=== PATIENT | male | born 1945 | race Caucasian/White ===

== ENCOUNTER 2018-02-03 01:48 | Emergency (ER) | payer OTHER ==
[2018-02-03] MEDS ORDERED: Aspirin 81 MG Tab.Chew PO ONE (01:55)
[2018-02-03] MEDS ORDERED: Sodium Chloride 0.9% 10 ML Syringe FLUSH PRN (01:55)
[2018-02-03] MEDS ORDERED: Sodium Chloride 0.9% 1,000 ML IV ONE (01:55)
[2018-02-03] MEDS ORDERED: Sodium Chloride 0.9% 2.5 ML Syringe FLUSH PRN ×2 (01:55)
--- NOTE | 2018-02-03 02:03 | EDM.PDOC ---
ED HPI GENERAL MEDICAL PROBLEM - General Chief Complaint: Cardiovascular Problem Stated Complaint: HEART SKIPS Time Seen by Provider: 02/03/18 02:02 Source of Information: Reports: Patient History Limitations: Reports: No Limitations - History of Present Illness INITIAL COMMENTS - FREE TEXT/NARRATIVE: HISTORY AND PHYSICAL: History of present illness: 72-year-old male presenting to emergency department with chief complaint of palpitations. Patient states that around midnight tonight he began to have some mild palpitations. He also states that he felt like he needed to breathe a little bit faster and had some associated nausea but no diaphoresis. In general he just felt somewhat weird. Secondary to above can emergency department for further evaluation. He states that these palpitations lasted for approximately an hour and a half but went away on their own. States that he has had A. fib before but had an ablation 1-2 years ago and said no further episodes. 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 Patient states that he did not have any chest pain with these events and the primary reason for coming was because of the palpitations. He does admit to having this happen for but this lasted a little bit longer. -Patient does note that he would like to at all possible follow-up at his home in [place] as he has only been oozing here for 4 days. He is planning on flying back today at 0800. -CBC, CMP, chest x-ray, troponin were all unremarkable and patient continues to have no symptoms. D-dimer was mildly elevated but patient denies any recent sitting, shortness of breath, leg swelling, leg pain. Well's criteria low probability for DVT/PE. -After results were given to the patient he asked to be discharged and stated that he would rather follow-up with his primary care physician in [place]. He did guarantee me that he would call them as soon as he got in later today for an appointment. I did offer the patient to at least stay overnight which she declined at this time and stated he would rather follow-up in [place]. Review of systems: As per history of present illness and below otherwise all systems reviewed and negative. Past medical history: As per history of present illness and as reviewed below otherwise noncontributory. Surgical history: As per history of present illness and as reviewed below otherwise noncontributory. Social history: No reported history of drug or alcohol abuse. Family history: As per history of present illness and as reviewed below otherwise noncontributory. Physical exam: HEENT: Atraumatic, normocephalic, pupils reactive, negative for conjunctival pallor or scleral icterus, mucous membranes moist, throat clear, neck supple, nontender, trachea midline. Lungs: Clear to auscultation, breath sounds equal bilaterally, chest nontender. Heart: S1S2, regular, negative for clicks, rubs, or JVD. Abdomen: Soft, nondistended, nontender. Negative for masses or hepatosplenomegaly. Negative for costovertebral tenderness. Pelvis: Stable nontender. Genitourinary: Deferred. Rectal: Deferred. Extremities: Atraumatic, negative for cords or calf pain. Neurovascular unremarkable. Neuro: Awake, alert, oriented. Cranial nerves II through XII unremarkable. Cerebellum unremarkable. Motor and sensory unremarkable throughout. Exam nonfocal. Diagnostics: CBC, CMP, troponin, INR, d-dimer Therapeutics: ASA 3 and 24 mg Impression: Heart palpitations Plan: See H&P patient requested discharge. I did offer him to stay overnight however he would rather follow-up at his home as he is leaving for [place] at 08 100 this morning. I did instruct him in a return to emergency department if he has any new or worsening symptoms. He should also continue with his primary care physician. Patient was discharged in good condition with above instructions. denies pain Pain Score (Numeric/FACES): 0 - Related Data Allergies Allergy/AdvReac Type Severity Reaction Status Date / Time No Known Allergies Allergy Verified 02/03/18 01:55 Home Meds: Home Meds Aspirin 81 mg PO DAILY 02/03/18 [History] ED ROS GENERAL - Review of Systems Review Of Systems: See Below ED EXAM, GENERAL - Physical Exam Exam: See Below Course - Vital Signs Last Recorded V/S: Last Vital Signs Temp 97.5 F 02/03/18 01:56 Pulse 75 02/03/18 02:48 Resp 18 02/03/18 02:48 BP 153/89 H 02/03/18 02:48 Pulse Ox 95 02/03/18 02:48 - Orders/Labs/Meds Orders: Active Orders 24 hr Category Date Time Status Cardiac Monitoring [RC] . DIRECTED Care 02/03/18 01:55 Active EKG Documentation Completion [RC] STAT Care 02/03/18 01:56 Active Oxygen Therapy [RC] ASDIRECTED Care 02/03/18 01:55 Active Pulse Oximetry [RC] ASDIRECTED Care 02/03/18 01:55 Active Chest 1V Frontal [CR] Stat Exams 02/03/18 01:55 Taken UA W/MICROSCOPIC [URIN] Stat Lab 02/03/18 01:56 Ordered Sodium Chloride 0.9% [Saline Flush] Med 02/03/18 01:55 Active 10 ml FLUSH ASDIRECTED PRN Sodium Chloride 0.9% [Saline Flush] Med 02/03/18 01:55 Active 2.5 ml FLUSH ASDIRECTED PRN Sodium Chloride 0.9% [Saline Flush] Med 02/03/18 01:55 Active 2.5 ml FLUSH ASDIRECTED PRN Saline Lock Insert [OM.PC] Stat Oth 02/03/18 01:55 Ordered Medication Orders Sodium Chloride (Saline Flush) 2.5 ml FLUSH ASDIRECTED PRN PRN Reason: Keep Vein Open Last Admin: 02/03/18 02:05 Dose: 2.5 ml Sodium Chloride (Saline Flush) 10 ml FLUSH ASDIRECTED PRN PRN Reason: Keep Vein Open Last Admin: 02/03/18 02:04 Dose: 10 ml Sodium Chloride (Saline Flush) 2.5 ml FLUSH ASDIRECTED PRN PRN Reason: Keep Vein Open Labs: Laboratory Tests 02/03/18 02/03/18 02/03/18 Range/Units 02:05 02:05 02:05 WBC 5.87 (4.0-11.0) K/uL RBC 4.74 (4.50-5.90) M/uL Hgb 14.1 (13.0-17.0) g/dL Hct 42.1 (38.0-50.0) % MCV 88.8 (80.0-98.0) fL MCH 29.7 (27.0-32.0) pg MCHC 33.5 (31.0-37.0) g/dL RDW Std Deviation 47.6 (28.0-62.0) fl RDW Coeff of Cele 15 (11.0-15.0) % Plt Count 190 (150-400) K/uL MPV 9.60 (7.40-12.00) fL Neut % (Auto) 57.3 (48.0-80.0) % Lymph % (Auto) 28.3 (16.0-40.0) % [place] % (Auto) 11.2 (0.0-15.0) % Eos % (Auto) 2.9 (0.0-7.0) % Baso % (Auto) 0.3 (0.0-1.5) % Neut # (Auto) 3.4 (1.4-5.7) K/uL Lymph # (Auto) 1.7 (0.6-2.4) K/uL [place] # (Auto) 0.7 (0.0-0.8) K/uL Eos # (Auto) 0.2 (0.0-0.7) K/uL Baso # (Auto) 0.0 (0.0-0.1) K/uL Nucleated RBC % 0.0 /100WBC Nucleated RBCs # 0 K/uL INR 1.02 D-Dimer, Quantitative 0.64 H (0.0-0.52) mg/LFEU Sodium 140 (136-148) mmol/L Potassium 3.9 (3.5-5.1) mmol/L Chloride 103 (98-107) mmol/L Carbon Dioxide 28.4 (21.0-32.0) mmol/L BUN 18 (7.0-18.0) mg/dL Creatinine 1.2 (0.8-1.3) mg/dL Est Cr Clr Drug Dosing 62.87 mL/min Estimated GFR (MDRD) 59.9 ml/min Glucose 132 H (74-106) mg/dL Calcium 9.0 (8.5-10.1) mg/dL Total Bilirubin 0.2 (0.2-1.0) mg/dL AST 30 (15-37) IU/L ALT 36 (14-63) IU/L Alkaline Phosphatase 76 (46-116) U/L Troponin I < 0.050 (0.000-0.056) ng/mL Total Protein 7.5 (6.4-8.2) g/dL Albumin 4.1 (3.4-5.0) g/dL Globulin 3.4 (2.0-3.5) g/dL Albumin/Globulin Ratio 1.2 L (1.3-2.8) Meds: Medications Generic Name Dose Route Start Last Admin Trade Name Freq PRN Reason Stop Dose Admin Sodium Chloride 2.5 ml 02/03/18 01:55 02/03/18 02:05 Saline Flush FLUSH 2.5 ml ASDIRECTED PRN Administration Keep Vein Open Sodium Chloride 10 ml 02/03/18 01:55 02/03/18 02:04 Saline Flush FLUSH 10 ml ASDIRECTED PRN Administration Keep Vein Open Sodium Chloride 2.5 ml 02/03/18 01:55 Saline Flush FLUSH ASDIRECTED PRN Keep Vein Open Discontinued Medications Generic Name Dose Route Start Last Admin Trade Name Freq PRN Reason Stop Dose Admin Aspirin 324 mg 02/03/18 01:55 02/03/18 02:19 Aspirin PO 02/03/18 01:56 324 mg ONETIME ONE Administration Sodium Chloride 1,000 mls @ 999 mls/hr 02/03/18 01:55 02/03/18 02:18 Normal Saline IV 02/03/18 02:55 999 mls/hr .Bolus ONE Administration Departure - Departure Time of Disposition: 03:02 Disposition: Home, Self-Care 01 Condition: Good Clinical Impression: Heart palpitations Referrals: PCP,None [Primary Care Provider] - Forms: ED Department Discharge Additional Instructions: My general discharge The following information is given to patients seen in the emergency department who are being discharged to home. This information is to outline your options for follow-up care. We provide all patients seen in our emergency department with a follow-up referral. The need for follow-up, as well as the timing and circumstances, are variable depending upon the specifics of your emergency department visit. If you don't have a primary care physician on staff, we will provide you with a referral. We always advise you to contact your personal physician following an emergency department visit to inform them of the circumstance of the visit and for follow-up with them and/or the need for any referrals to a consulting specialist. The emergency department will also refer you to a specialist when appropriate. This referral assures that you have the opportunity for follow-up care with a specialist. All of these measure are taken in an effort to provide you with optimal care, which includes your follow-up. Under all circumstances we always encourage you to contact your private physician who remains a resource for coordinating your care. When calling for follow-up care, please make the office aware that this follow-up is from your recent emergency room visit. If for any reason you are refused follow-up, please contact the [facility] Emergency Department at and asked to speak to the emergency department charge nurse. [facility] [address] [place] [address] [facility] [address] [place] [id number] - My Orders Last 24 Hours: My Active Orders 02/03/18 01:55 Cardiac Monitoring [RC] . DIRECTED Oxygen Therapy [RC] ASDIRECTED Pulse Oximetry [RC] ASDIRECTED Chest 1V Frontal [CR] Stat Sodium Chloride 0.9% [Saline Flush] 10 ml FLUSH ASDIRECTED PRN Sodium Chloride 0.9% [Saline Flush] 2.5 ml FLUSH ASDIRECTED PRN Sodium Chloride 0.9% [Saline Flush] 2.5 ml FLUSH ASDIRECTED PRN Saline Lock Insert [OM.PC] Stat 02/03/18 01:56 EKG Documentation Completion [RC] STAT UA W/MICROSCOPIC [URIN] Stat - Assessment/Plan Last 24 Hours: My Active Orders 02/03/18 01:55 Cardiac Monitoring [RC] . DIRECTED Oxygen Therapy [RC] ASDIRECTED Pulse Oximetry [RC] ASDIRECTED Chest 1V Frontal [CR] Stat Sodium Chloride 0.9% [Saline Flush] 10 ml FLUSH ASDIRECTED PRN Sodium Chloride 0.9% [Saline Flush] 2.5 ml FLUSH ASDIRECTED PRN Sodium Chloride 0.9% [Saline Flush] 2.5 ml FLUSH ASDIRECTED PRN Saline Lock Insert [OM.PC] Stat 02/03/18 01:56 EKG Documentation Completion [RC] STAT UA W/MICROSCOPIC [URIN] Stat
[2018-02-03 02:43] LABS: CHLORIDE,CL 103 mmol/L (98-107); SODIUM,NA 140 mmol/L (136-148)
--- NOTE | 2018-02-03 16:50 | CR ---
EXAM DATE: 02/03/18 PATIENT'S AGE: 72 Patient: DORIS COX Facility: [place], [place] Site . Site : [id number] Study: XRay Chest [id number]/29/2018 2:31:44 AM Ordering Physician: Ramy Avendano Final Report: Indication: Chest pain. Palpitations Technique: Chest 1 view Comparison: None Findings/Impression: Cardiovascular and mediastinum: Cardiomegaly. An unfolded aorta. Sternotomy sutures. Lungs and pleural space: Lungs are clear. No sign of infiltrate or mass. No sign of pleural effusion. No pneumothorax. Bones and soft tissues: No significant findings. Dictated by Marlon Mohan MD @ 02/03/2018 3:30:55 AM Dictated by: Marlon Mohan MD @ 02/03/2018 03:30:58 (Electronic Signature) Report Signed by Proxy. SORIN
== END 2018-02-03 03:10 | disposition home or self-care (01) ==
LOC: MW.ED 01:48
DX: R00.2 Palpitations (principal); Z79.82 Long term (current) use of aspirin
CPT/HCPCS: 36415; 71045; 80053; 84484; 85025; 85379; 85610; 93005; 96360; 99285; A9270; J7040; 99284